=== PATIENT | male | born 1955 | race Hispanic/Latino ===

== ENCOUNTER 2017-02-10 15:31 | Inpatient (IN) | payer OTHER ==
[~2017-02-10] VITALS: Ht 167.6 cm; Wt 154.2 kg
[2017-02-10] MEDS ORDERED: NORCO 5-325 TA1 EACH PO (15:54)
[2017-02-10] MEDS ORDERED: ADULT LOW DOSE81 MG PO (15:54)
[2017-02-10] MEDS ORDERED: GLUCOSAMINE &1 EAC1 PO (15:54)
[2017-02-10] MEDS ORDERED: VITAMIN C1000 M2 PO (15:55)
[2017-02-10] MEDS ORDERED: METOPROLOL SUC100 MG PO (15:55)
[2017-02-10] MEDS ORDERED: HYZAAR 100-12.1 EACH PO (15:55)
--- NOTE | 2017-02-10 16:38 | NUR ---
PREADMIT PT CARE NOTE THIS IS A 61 YEAR OLD MALE THAT IS SCHEDULED FOR A LEFT TOTAL KNEE REPLACEMENT ON 02/23/[address] LAINA BAKER. PT LIVES WITH HIS AND SON IN A ONE STORY HOUSE WITH 2 STAIRS INTO IT. PT HAS A WALKIN SHOWER AND STATES HE IS GOING TO OBTAIN A SHOWERSEAT AND A HANDHELD SHOWERHEAD. STATES HE ALREADY HAS A FRONT WHEELED WALKER. ALSO STATES HE WILL DECIDING WHETHER HE IS GOING TO HAVE HOME HEALTH PT OR OP PT WHILE HE IS HERE AND SEES HOW HE DOES. DENIES FURTHER QUESTIONS, WILL FOLLOW PT DURING HIS STAY IN THE HOSPITAL [facility] FACILITIES OPERATIONS TECHNICIANRABBLER CASE MANAGEMENT
--- NOTE | 2017-02-23 08:46 | NUR ---
PT RESTING IN BED WATCHING TV. NO REQUESTS AT THIS TIME. FAMILY AT BEDSIDE.
--- NOTE | 2017-02-23 11:54 | NUR ---
02/23/17 1154 Miladys Gilman 1130-REPORT PER CAREER SERVICES ASSISTANT.
--- NOTE | 2017-02-23 12:41 | NUR ---
PT DROWSY, AROUSED TO VERBAL STIMULI. DENIES PAIN. GROSS MOVEMENT TO BILATERAL FEET, MOVEMENT WEAK. DULL TOUCH NOTED BY PT TO BILATERAL FEET AND TOES. PEDAL PULSES FAINT, PALPABLE, FEET COOL.
--- NOTE | 2017-02-23 12:42 | NUR ---
PT ARRIVED TO ROOM 115 AT 1227. PT SLEEPING. RESP THERAPY ASSESSING PT FOR NEED OF CPAP. FAMILY AT BEDSIDE. 2L [address] CMS INTACT. CRYOCUFF, TEDS, AND SCDs IN PLACE.
--- NOTE | 2017-02-23 13:10 | NUR ---
[facility] REC COMPLETE WITH [facility] RECORDS. PATIENT HAS BEEN PRESCRIBED IBUPROFEN, TRAMADOL, AND NAPROXEN SINCE NOVEMBER 2016. PATIENT SHOULD BE ADVISED ON WHICH PAIN MEDICATIONS SHOULD BE USED UPON DISCHARGE.
[2017-02-23] MEDS ORDERED: NAPROSYN500 MG PO (13:13)
[2017-02-23] MEDS ORDERED: ULTRAM50 MG PO (13:13)
[2017-02-23] MEDS ORDERED: IBUPROFEN600 MG PO (13:14)
--- NOTE | 2017-02-23 14:55 | NUR ---
PT REPORTED TO RN AT [facility] VS CHECK THAT HE HAD AN INCONTINENT VOID. LINENS CHANGED BY LOG ROLLING PT SIDE TO SIDE. PAIN ELEVATED IN LEFT KNEE. DILAUDID PRN GIVEN PER CURRICULUM AND ASSESSMENT COORDINATOR BREAKTHROUGH PAIN ORDERS. TOLERATING JELLO AND JUICE SO FAR. MORE JELLO PROVIDED. CRYOCUFF IN PLACE. EDUCATED PT ON WHEN TO CALL FOR PAIN MEDICINE. PT UNDERSTOOD EDUCATION. CALL LIGHT WITHIN REACH.
--- NOTE | 2017-02-23 15:20 | NUR ---
patient was taking off his pulse ox to get staff attention. patient had peed when he coughed. azael care done. clean sheet underneth and depends on. call button in reach. no other needs at this time.
--- NOTE | 2017-02-23 18:15 | NUR ---
LEFT KNEE SURGERY TODAY. CORINNE, MEPILEX, OPSITE, BENITO WRAP. CRYOCUFF, TEDS, SCDs. INCONT VOID X2. UP WITH PHYSICAL THERAPY THIS AFTERNOON. DILAUDID X2, MORPHINE X1. SALINE LOCKED. CPAP @ NOC. 2L O2 WHILE AWAKE. REGULAR DIET.
--- NOTE | 2017-02-23 20:01 | NUR ---
PT COMPLAINED OF 5/10 PAIN IN HIS KNEE, GAVE MORPHINE IV FOR PAIN. FILLED CRYOCUFF WITH ICE. PT ATE 100% OF HIS DINNER, TOOK TRAY OUT OF ROOM. GAVE FRESH ICE WATER. PT ALERT AND ORIENTED X4, PLEASENT DEMEANOR. NO DISTRESS AT THIS TIME. DRESSING IS CLEAN DRY AND INTACT, NO SHADOWING. CALL LIGHT IN REACH.
--- NOTE | 2017-02-23 20:27 | NUR ---
IN TO SEE PT, RESTING IN BED WATCHING TV. ASSESSMENT COMPLETED. PT CURRENTLY RATES PAIN A 0/10. SCD'S, CRYO, TEDS IN PLACE. PULSE OX ON PT SAT 90% ON 1L, BPAP AT BEDSIDE. CRYO CUFF FILLED WITH ICE AND FRESH ICE WATER GIVEN. CALL LIGHT WITHIN REACH.
--- NOTE | 2017-02-23 20:49 | NUR ---
pt complained of "itching around my neck and my nose." gave nubain for pruritis. pt rates pain at a 0/10 at this moment. scheduled pain medications given.
--- NOTE | 2017-02-23 21:42 | NUR ---
PT REPORTS THAT HE FEELS LIKE THE CPAP IS BLOWING TO MUCH AIR. CALLED RT TO COME LOOK AT CPAP MACHINE. RT RE-ASSURED PT THAT ALL THE SETTING ARE WHAT WAS RECOMMENDED FOR HIM. PT OKAY WITH THIS. CALL LIGHT IN REACH.
--- NOTE | 2017-02-24 01:37 | NUR ---
PT APPEARED TO BE SLEEPING WHEN ENTERING ROOM, CPAP IN PLACE. WOKE EASILY TO VOICE. PT RATES PAIN AT A 0/10 "WHEN LAYING STILL," AND A 3/10 WHEN "MOVING." GAVE SCHEDULED TORADOL AND SCHEDULED OXYCODONE FOR PAIN. ANCEF INFUSED WNL. CALL LIGHT IN REACH. CRYO CUFF REFILLED WITH ICE. NO FURTHER NEEDS.
--- NOTE | 2017-02-24 03:56 | NUR ---
IN TO CHECK ON PT PT AWAKE REQUESTING WARM BLANKETS. PT RATES PAIN A 5/10 "WHEN I MOVE MY KNEE, BUT IT SETTLES DOWN WHEN I AM STILL". DISSCUSSED PT'S PAIN GOAL OF A 1-2/10, DILAUDID 4 MG PO GIVEN FOR PAIN. WARM BLANKETS GIVEN. CRYO, SCD'S AND TEDS IN PLACE. CPAP IN PLACE. WATER, URINAL AND CALL LIGHT WITHIN REACH.
--- NOTE | 2017-02-24 05:42 | NUR ---
PT NIGHT UNEVENTFUL, RESTED WELL. PAIN WELL CONTROLED WITH SCHEDULED AND PRN MEDICATIONS. NUBANINE X1 FOR PRURITIS, COVERED WELL. DRSG CLEAN, DRY, INTACT AND NO SHADOWING PRESENT. CRYO,TEDS, SCD'S AND HEELS IN PLACE. IS AT BEDSIDE. CPAP IN PLACE OVERNIGHT. PULSE OX IN PLACE. VOIDING WELL, USES URINAL. PT ALERT, ORIENTED, COOPERATIVE AND PLEASENT.
--- NOTE | 2017-02-24 07:15 | OR ---
[facility] [address], [place] [address] Signed DATE OF PROCEDURE: 02/23/17 PREOPERATIVE DIAGNOSIS: Degenerative joint disease, left knee. POSTOPERATIVE DIAGNOSIS: Degenerative joint disease, left knee. PROCEDURE PERFORMED: Left total knee arthroplasty with computer navigation. SURGEON: Laina Cash M.D. [employer] SALES: Isa Elizabeth PA-C and HUNTER Sow. ANESTHESIA: Spinal. ESTIMATED BLOOD LOSS: Minimal. TOURNIQUET TIME: 58 minutes. IMPLANTS: Whitney size 5, 11 mm insert and a 35 mm patella. BRIEF HISTORY Que is 61-year-old gentleman with progressive worsening of osteoarthritis. He had undergone nonoperative treatment and an arthroscopy with minimal relief. Risks and benefits of operative treatment discussed with him and he elected to proceed. DESCRIPTION OF PROCEDURE Once consent was obtained, he was taken to the operating room. After adequate anesthesia, he was placed on the operating room table. All downside pressure points well padded. A left hip bump and proximal thigh tourniquet were placed. The leg was then prepped and draped in the standard sterile fashion, exsanguinated using the Esmarch bandage. Tourniquet inflated to 300 mmHg. Standard anterior-posterior curved incision was taken throug h skin and subcutaneous tissue. Median parapatellar arthrotomy was performed. The infrapatellar fat pad was excised and the insoles of a sleeve around the posterior medial corner. Anterior horns of the lateral and medial meniscus were transected as was the ACL. Knee was flexed. Navigation guide was pinned to the distal femur and the femur was registered with the computer. The distal femoral cutting guide was pinned in neutral alignment and the distal femoral cut was made. Distal femur sized to a 5. The AP cutting block was then pinned in line with epicondylar axis. Anterior, posterior, and chamfer cuts were made. The osteophytes were removed. The attention was turned to the proximal tibia and navigation guide was pinned. The tibia was registered with the computer. The cutting block was then pinned in neutral alignment. The cut was made with care taken to protect the patellar tendon and MCL. Bone was excised as well as Electronically Signed By: LAINA CASH MD 02/24/17 0715 PATIENT NAME: QUE MCCLELLAN OCA OPERATIVE REPORT DATE OF : 55 PHYSICIAN: LAINA CASH MD REPORT #: [id number] REPORT IS CONFIDENTIAL AND NOT TO BE RELEASED WITHOUT AUTHORIZATION [facility] [address], [place] [address] Signed any meniscal remnants. Posterior osteophytes were removed off the femur and tibia and posterior release was performed. Flexion-extension gaps were sized and found to be symmetric at 11 mm. The trials were positioned. He was taken through range of motion and found to be quite stable. The alignment was good. The femoral drill holes were then drille d and the patella was cut, sized, and drilled for an asymmetric 35 mm patella. The tibia was finished using the keel punched and all trials were removed. The final bone surfaces were pulse lavaged and packed with a dry Ray-Jose. The cement was mixed. When it reached proper consistency, placed all implants on all bone surfaces. Tibia was impacted into position. Again, all excess cement was removed. The polyethylene was snapped into position and the femur was impacted. Again, all excess cement was removed. The knee was extended and nicely loaded. The patella was clamped. Again, all excess cement was removed. The cement was allowed to harden for 14 minutes. The knee was then flexed and the remaining cement was removed using osteotomes. The knee was pulse lavaged throughout the procedure with a total of 3 L. Antibiotic irrigation was used. The periarticular soft tissues were injected with 100 mL ropivacaine and Toradol mixture. The arthrotomy was closed using #1 Stratafix, subcutaneous tissue with 0 Stratafix, and the skin with nai. The wound was dressed with a Mepilex Ag dressing, ABD, and Maxwell wrap. He tolerated the procedure well. All sponge, needle, and instrument counts were correct. Laina Cash MD BA/Modl /[id number] cc: Romina Oliveira NP Electronically Signed By: LAINA CASH MD 02/24/17 0715 PATIENT NAME: BRENDEN,MARTIN A OPERATIVE REPORT DATE OF : 55 PHYSICIAN: LAINA CASH MD REPORT #: [id number] REPORT IS CONFIDENTIAL AND NOT TO BE RELEASED WITHOUT AUTHORIZATION
--- NOTE | 2017-02-24 07:20 | NUR ---
REPORT RECEIVED OUTSIDE PT ROOM PATIENT IS SLEEPING FROM PRUDENCIO/JONNY LI. CPAP IN PLACE. PT SLEPT WELL THROUGHOUT NIGHT PER REPORT. USING URINAL PRN. RH IV SL. PAIN WELL CONTROLLED.
--- NOTE | 2017-02-24 07:45 | NUR ---
PATIENT UP TO CHAIR 2 PERSON ASSIST WITH WALKER. CRYO CUFF ON. PATIENT GAVE SELF BED BATH AND ORAL CARE. LINENS CHANGED. GOWN CHANGED. CALL BUTTON IN REACH.
--- NOTE | 2017-02-24 07:53 | NUR ---
QUARTER SIZE DRAINAGE ON LOWER PORTION OF DRESSING THIS MORNING. DRY BLOOD. TRANSFERRED TO CHAIR WITH 2PA AND FWW. TOLERATED MODERATELY WELL. PAIN ELEVATES WITH ACTIVITY. WILL GIVE SCHEDULED PAIN MEDS THIS MORNING AND MONITOR PAIN RELIEF.
--- NOTE | 2017-02-24 11:01 | NUR ---
PT IS LYING IN BED WATCHING TV. PT ASKED FOR MORE ICE WATER
--- NOTE | 2017-02-24 14:06 | NUR ---
PT UP WITH PHYSICAL THERAPY NOW.
--- NOTE | 2017-02-24 14:51 | NUR ---
PT IS LYING IN BED WATHCING TV. PT DID NOT NEED ANYTHING ELSE AT THE MOMENT
--- NOTE | 2017-02-24 17:25 | NUR ---
up with PT x2. tolerated moderately well. pain not well controlled with regimen-- oxycodone increased to 10mg q4h scheduled. slight shadowing on mepilex and bottom of dressing. may go home tomorrow per PT. urinal.
--- NOTE | 2017-02-24 18:01 | NUR ---
PT IS SITTING UP IN BED ON PHONE. PT DID NOT NEED ANYTHING AT THE MOMENT
--- NOTE | 2017-02-24 19:42 | NUR ---
pt laying in bed, watching tv. friendly and pleasent demeanor. pt rates pain at 8/10, gave prn dilaudid. iv would no longer flush, dc'd iv wnl, tip intact. pt has no further needs. call light in reach. cryo cuff full of ice. fresh ice water given.
--- NOTE | 2017-02-24 20:00 | NUR ---
IN TO SEE PT, PT AWAKE WATCHING TV. PT RATES HIS PAIN AN 8/10, FACIAL GRIMACE WITH MOVEMENT OF KNEE. PRN DILAUDID GIVEN. CRYO, SCD, TEDS AND BENITO INTACT. NOTED A QUARTER SIZE AREA OF DRAINAGE NOTED ON THE TOP LAYER OF BENITO WRAP AND 2 SMALL AREAS OF SHADOWING ON THE LAYERS BELOW. ASSESSMENT DONE, MEDICATION GIVEN. PT RESTING WATCHING TV, CALL LIGHT WITHIN REACH.
--- NOTE | 2017-02-24 21:58 | NUR ---
ATTEMPTED TO GIVE IV MEDICATION, PT STATES IV SITE CHOWDHURY AND IS PAIN WHEN MEDICATION IS GIVEN. IV DC'D FOR DISCOMFORT. DR. URIOSTEGUI NOTIFIED, OKHELIO TO LEAVE IV OUT. PO TORADOL ORDERED AND GIVEN. DISCUSSED PT CURRENT PAIN RATING OF 8/10. PER DR. SAMUEL DEVRIES TO GIVE DILAUDID 4-12 MG, Q4 PRN. ORDERS UPDATED.
--- NOTE | 2017-02-24 22:00 | NUR ---
pt complained of 6/10 pain, states "its a little bit better now, that last pain medicine took the edge off." gave scheduled oxycodone. will continue to monitor closely.
--- NOTE | 2017-02-24 22:38 | NUR ---
FILLED THE CRYO.
--- NOTE | 2017-02-24 23:17 | NUR ---
IN TO CHECK ON PT, PT APPEARS TO BE SLEEPING, NO APPARENT DISTRESS. CPAP IN PLACE. CRYO, SCD'S, TEDS AND HEEL PROTECTORS IN PLACE.
--- NOTE | 2017-02-25 00:18 | NUR ---
IN ROOM, PT REQUEST MEDICATION FOR PAIN MEDICATION. PT EXHIBIT FACIAL GRIMACE AND LABORED BREATHING WITH PAIN. PT RATES PAIN A 9/10. DILAUDID 12 MG GIVEN. PT MOVED UP IN BED AND REPOSITIONED FOR COMFORT. DRESSING ASSESSED. CRYO, SCD'D, TEDS AND HEEL PROTECTORS IN PLACE. CPAP PLACED AND ADJUSTED FOR COMFORT. CALL LIGHT WITH REACH.
--- NOTE | 2017-02-25 02:35 | NUR ---
pt appeared to be sleeping when entering room, woke easily to rn voice. pt rates pain at 3/10 at this time. gave scheduled oxycodone for pain.
--- NOTE | 2017-02-25 04:30 | NUR ---
pt appeared to be sleeping, cpap in place, woke to rn voice. rates pain at 5/10 at this moment, gave dilaudid prn for pain. will continue to monitor pain closely.
--- NOTE | 2017-02-25 05:58 | NUR ---
pt complaining of 9/10 pain, grimmacing facial expressions, growning. pt sat at bedside to void in urinal. brought pt a bigger chair and got pt up in chair, pt able to stand with one 2 person assist and fww, painful but steady. scheduled oxycodone given. refilled ice in cryo cuff. after sitting up in chair for a few minutes, pt reported pain was "settling down." call light in reach. fresh ice water at bedside.
--- NOTE | 2017-02-25 06:29 | NUR ---
PT PAINFUL IN BEGINNING OF SHIFT, REPORTED PAIN AT 8/10. SCHEDULED AND PRN PAIN MEDICATIONS GIVEN APPROXIMATLEY EVERY 2 HOURS OVERNIGHT, PAIN LEVEL DOWN TO 3/10 LATE IN SHIFT AND THEN BACK UP TO 9/10 THIS MORNING. GOT PT A BIGGER CHAIR IN ROOM AND ASSISTED PT UP IN CHAIR, PT REPORTED PAIN STARTED TO DECREASE. CRYO CUFF FILLED WITH ICE, TEDS, SCD'S, AND HEEL PROTECTORS ON ALL NIGHT. DRESSING INTACT WITH SMALL SPOT OF SHADOWING, WHICH HAS BEEN UNCHANGED SINCE BEGINNING OF SHIFT. PT USED INCENTIVE SPIROMETER IN FRONT OF RN A FEW TIMES OVERNIGHT. PT ALERT AND ORIENTED, COOPERATIVE, AND PLEASENT. ABLE TO USE URINAL SITTING AT BEDSIDE. USES CALL LIGHT APPROPRATLY.
--- NOTE | 2017-02-25 06:35 | NUR ---
IN TO CHECK ON PT, PT UP IN CHAIR TALKING ON THE PHONE. NO APPARENT DISTRESS NOTED.
--- NOTE | 2017-02-25 06:45 | NUR ---
PT APPEARS TO BE SLEEPING, RECLINED IN CHAIR. EYES CLOSED, RR WNL AND UNLABORED. NO DISTRESS AT THIS TIME. CALL LIGHT IN REACH.
--- NOTE | 2017-02-25 07:56 | NUR ---
PATIENT REMAINS UP IN THE CHAIR, PAIN INTOLERABLE AT THIS TIME AT A 9, PATIENT GIVEN HIS SCHEDULED TORADOL PO AND 12MG PO DILAUDID. CRYO CUFF ON HIS LEFT LEG FULL OF ICE AND CMS INTACT TO THE LEFT LEG. DRESSING CDI. PATIENT C/O LEFT LEG BEING NUMB AT THIS TIME. THIS RN ASSISTED THE PATIENT WITH MOVING THE LEG. BREAKFAST SET UP FOR THE PATIENT AND ICE WATER FILLED FOR HIM. WARM BLANKET PROVIDED FOR HIM AT THIS TIME.
--- NOTE | 2017-02-25 08:35 | NUR ---
PATIENT AWAKE IN CHAIR EATING BREAKFAST. PATIENT STATED HE DID NOT NEED ANYTHING AT THIS TIME.
--- NOTE | 2017-02-25 09:46 | NUR ---
patient's pain is still at a 9/10, patient given scheduled oxycodone at this time and Doctor Shaliesh notified that patients pain remains intolerable and patient c/o a numb left leg.
--- NOTE | 2017-02-25 10:34 | NUR ---
PATIENT UP IN CHAIR SLEEPING. I TOOK VITALS. I OFFERED PATIENT A BED BATH OR SHOWER, HE REFUSED IT HURTS TO BAD TO GET UP. HE AGREED TO THE NEXT TIME HIM GETTING UP WE CAN CLEAN HIM UP. REFILLED CRYOCUFF AND GOT PATIENT ICE WATER.
--- NOTE | 2017-02-25 11:12 | NUR ---
doctor Shailesh in the room to see the patient and dressing removed from the left knee. Enriqueta in from physical therapy to help the patient stand. New medication ordered at this time and given for pain control. Ms Contin 15 mg po given now. pain now 04/12.
--- NOTE | 2017-02-25 11:56 | NUR ---
PATIENT RESTING IN BED AFTER AMBULATING WITH PHYSICAL THERAPY. PATIENT'S PAIN A LITTLE IMPROVED AFTER TAKING THE MSCONTIN. PAIN NOW DOWN TO A 6/10.
--- NOTE | 2017-02-25 12:28 | NUR ---
PAIN LEVEL DOWN TO A 6/10 AT THIS TIME, PATIENT REMAINS RESTING IN BED, SCHEDULED TORADOL GIVEN AT THIS TIME.
--- NOTE | 2017-02-25 14:10 | NUR ---
PATIENT GIVEN PAIN MEDICATION AT THIS TIME PER REQUEST FOR WORKING WITH PHYSICAL THERAPY AT 1500. PATIENT'S CURRENT PAIN RAITING IS AT A 11/10.
--- NOTE | 2017-02-25 15:00 | NUR ---
PATIENT UP TO THE PHYSICAL THERAPY ROOM WITH JORDON TO THE EXERCISE BIKE. PAIN WELL CONTROLLED AFTER TAKING DILAUDID. TOLERATING PHYSICAL THERAPY WELL THIS AFTERNOON.
--- NOTE | 2017-02-25 17:39 | NUR ---
PATIENT SITTING UP IN BED EATING DINNER, REGULAR SCHEDULED TORADOL GIVEN PO AT THIS TIME. PATIENTS PAIN CURRENTLY AT A 4/10. PATIENT DENIES ANY NEEDS AT THIS TIME.
--- NOTE | 2017-02-25 17:56 | NUR ---
PATIENTS VITALS AND I AND O COMPLETE AT THIS TIME
--- NOTE | 2017-02-25 20:04 | NUR ---
IN TO CHECK ON PT, PT ALERT WATCHING TV. PT IIS PLEASENT. CURRENTLY RATES PAIN A 2-3. PT STATES "I AM OF THE PAIN COMING BACK. IT IS STARTING TO COME BACK". ADVISED PT THAT PRN PAIN MEDICATION AVAILABLE AND SCHEDULED PAIN MEDICATION GIVEN AT 2100. DRSG CLEAN DRY AND INTACT. CRYO,SCD'S,EILEEN'S AND HEEL PROTECTORS IN PLACE. FRESH WATER GIVEN, CALL LIGHT WITHIN REACH.
--- NOTE | 2017-02-25 21:05 | NUR ---
PT SLEEPING WHEN ENTERING ROOM, WOKE EASILY TO VOICE. ASSISTED PT TO SIT AT BEDSIDE SO THAT HE COULD VOID IN URINAL. PT BACK IN BED NOW. RATES PAIN AT 5/10 AT THE MOMENT, GAVE SCHEDULED MS CONTIN AND TORADOL FOR PAIN. DRESSING IS CLEAN DRY AND INTACT, NO SHADOWING. TEDS, SCD'S, HEEL PROTECTORS IN PLACE. CRYO CUFF REFILLED WITH ICE AND PLACED ON KNEE. PT DENIES FURTHER NEEDS. CALL LIGHT IN REACH.
--- NOTE | 2017-02-25 22:57 | NUR ---
IN TO CHECK ON PT, PT SLEEPING CPAP IN PLACE. NO APPARENT DISTRESS NOTED. CRYO CUFF, EILEEN'S, SCD'S AND HEEL PROTECTORS IN PLACE. IS AT BEDSIDE. CALL LIGHT WITHIN REACH.
--- NOTE | 2017-02-26 00:02 | NUR ---
IN TO CHECK ON PT, PT SLEEPING. EASILY AROUSED BY VOICE. PT RATES PAIN 1/10. DILAUDID GIVEN FOR PAIN. CRYO CUFF, TEDS, SCDS AND HELL PROTECTORS IN PLACE. IS AT BEDSIDE. WATER AND CALL LIGHT WITHIN REACH.
--- NOTE | 2017-02-26 00:06 | NUR ---
PT ASLEEP WHEN ENTERING ROOM, PT WOKE EASILY BY VOICE. PT RATES PAIN AT 1/10 AT THE MOMENT. GAVE PT DILAUDID 4MG TO KEEP PAIN UNDER CONTROL. WILL CONTINUE TO MONITOR PT FOR PAIN. CALL LIGHT IN REACH.
--- NOTE | 2017-02-26 02:54 | NUR ---
IN TO CHECK ON PT, PT SLEEPING, CPAP IN PLACE. CRYO CUFF, SCDS, TEDS AND HEEL PROTECTORS IN PLACE. NO APPARENT DISTRESS NOTED. CALL LIGHT WITHIN REACH.
--- NOTE | 2017-02-26 04:50 | NUR ---
pt woke to voice when entering room. assisted to stand at bedside, pt tolerated getting up and standing at bedside very well, voided in urinal. pt rates pain at "2-3/10," "im kind of starting to feel it again." gave dilaudid 8mg for pain. pt has no other complaints at this time. back in bed. cryo cuff refilled with ice. ice water given. call light in reach. pt placed cpap back and and stated "maybe i can get a little more sleep in tonight."
--- NOTE | 2017-02-26 05:42 | NUR ---
PT HAS HAD UNEVENTFUL SHIFT. REPORTED PAIN UP TO A 5/10. MS CONTIN AND DILAUDID GIVEN. DRSG CLEAN, DRY AND INTACT. NO SHADOWING NOTED. CRYO CUFF, TEDS,SCDS AND HEEL PROTECTORS IN PLACE. IS AT BEDSIDE. PT ALERT, ORIENTED AND COOPERATIVE. PT PLEASENT. USES CALL LIGHT APPROPRIATLY.
--- NOTE | 2017-02-26 07:20 | NUR ---
REPORT RECEIVED FROM BOOK BINDER RN USING 5 P'S. PT AWAKE AND ALERT IN BED. REQUESTS PAIN MED PRIOR TO PHYSICAL THERAPY. DENIES NEEDS AT THIS TIME. CRYOCUFF, TEDS, SCD'S IN PLACE. CALL LIGHT IN REACH. NO IV ACCESS.
--- NOTE | 2017-02-26 10:06 | NUR ---
PT UP TO BR FOR VOID AND BM THEN TO SHOWER. GIVEN DILAUDID AND MS CONTIN FOR PAIN. PHYSICAL THERAPY IN TO WORK WITH PT.
--- NOTE | 2017-02-26 12:00 | NUR ---
PT TO FLOOR VIA GURNEY. NAUSEOUS WITH MOVEMENT. LARGE EMESIS ON ARRIVAL TO ROOM. GIVEN 4 MG ZOFRAN. VAG PACKING IN PLACE. CONT PULSE OX PLACED. 2 L O2 NC IN PLACE. SATS 98%. PT SETTLED IN BED. SCOPE SITES TO ABD INTACT PT COMPLAINS OF PAIN. UNABLE TO RATE. FALLS ASLEEP IMMEDIATELY. SATS DECREASE TO 84% O2 INCREASED TO 3, 4, THEN 5 L. SATS INCREASE TO 88%. OXYMASK APPLIED. SATS INCREASE TO 94%. RT CALLED TO EVALUATE FOR CPAP. RT RECOMMENDS CPAP. MD ABARCAS. FAMILY AT BEDSIDE. CALL LIGHT IN REACH. IV FLUIDS INFUSING WITHOUT DIFFICULTY.
--- NOTE | 2017-02-26 13:00 | NUR ---
PT UP TO BR. ASSISTED BACK TO SIT ON EDGE OF BED. PHONE AND CALL LIGHT IN REACH. PT DENIES NEEDS. PT MEDICATED WITH DILAUDID TO KEEP PAIN UNDER CONTROL FOR PHYSICAL THERAPY.
--- NOTE | 2017-02-26 15:09 | NUR ---
PT UP ON EXERCISE BIKE FOR PHYSICAL THERAPY.
--- NOTE | 2017-02-26 15:29 | NUR ---
noah mcclelland placed on the patient at this time.
--- NOTE | 2017-02-26 17:56 | NUR ---
PT HAS HAD UNEVENTFUL SHIFT. TAKING PO WELL. VOIDING WELL. SBA W/ FWW TO BR AND TO WALK IN [place]. RECEIVING 8 MG DILAUDID PO Q 4 HRS, WHICH IS MANAGING PAIN WELL WITH SCHEDULED MS CONTIN AND TORADOL. ENCOURAGED PT TO BE INDEPENDANT WITH MOVEMENT MUCH POSSIBLE SO PT IS ABLE TO GO HOME TOMORROW PLANNED. NO IV ACCESS. CALLS APPROPRIATELY. CHRISTEL MACK, SCD'S.
--- NOTE | 2017-02-26 19:29 | NUR ---
PT ASSESSMENT COMPLETE. PT DENIES ANY PAIN, N/V, SOB AT THIS TIME. DRESSING TO LEFT KNEE IS C/D/I, CRYO CUFF IN PLACE. PT ON ROOM AIR. PT HAS NO IV ACCESS. CALL LIGHT WITHIN REACH. PT DENIES ANY FURTHER NEEDS AT THIS TIME.
--- NOTE | 2017-02-26 21:14 | NUR ---
PT C/O "RED SPOTS" ON LEFT KNEE, RESOLVED BUT SLIGHTLY PINK AREA POSSIBLY D/T CRYO CUFF DIRECTLY ON SKIN. PLACED SHEET OVER KNEE WITH CRYO CUFF OVER FOR COMFORT. WILL CONTINUE TO MONITOR. PINK AREA NEXT TO DRESSING IS NOT HOT OR SWOLLEN. PT DENIES ANY DISCOMFORT WITH PINK AREA, PT STATES "I JUST NOTICED IT AND WANTED TO MAKE SURE IT WAS NORMAL" PT RATES PAIN 2/10, SCHEDULED TORADOL AND MS CONTIN GIVEN. PT VOIDING WELL IN URINAL. UP WITH SBA USING FWW, TOLERATES AMBULATION FAIRLY WELL. CALL LIGHT WITHIN REACH. PT DENIES ANY FURTHER NEEDS AT THIS TIME.
--- NOTE | 2017-02-27 00:10 | NUR ---
PT SLEEPING, WEARING BIPAP, RR EVEN AND UNLABORED. PT APPEARS COMFORTABLE AT THIS TIME. CALL LIGHT WITHIN REACH.
--- NOTE | 2017-02-27 02:07 | NUR ---
WOKE PT UP FOR PAIN MEDICATION. PT WOKE EASILY TO VERBAL STIMULATION. PT RATES PAIN IN LEFT KNEE 08/12, 8 MG PO DILAUDID GIVEN. DRESSING TO KNEE IS C/D/I. PT VOIDING IN URINAL AT EDGE OF BED WITHOUT DIFFICULTY. CRYO CUFF REFILLED AND IN PLACE. PT WEARING BIPAP AT SLEEP. CALL LIGHT WITHIN REACH. PT DENIES ANY FURTHER NEEDS AT THIS TIME.
--- NOTE | 2017-02-27 04:20 | NUR ---
PT SLEEPING, WEARING BIPAP, RR EVEN AND UNLABORED. PT APPEARS COMFORTABLE AT THIS TIME. CALL LIGHT WITHIN REACH.
--- NOTE | 2017-02-27 06:34 | NUR ---
PT HAD AN UNEVENTFUL NIGHT, SLEPT MOST OF THE NIGHT, WEARS BIPAP DURING SLEEP. PT AMBULATES WITH x1 ASSIST USING FWW. PT PAIN CONTROLLED WITH NEW MEDICATION REGIME OF MS CONTIN, TORADOL AND PO DILAUDID. DRESSING C/D/I. PT VOIDING WELL. CRYO CUFF/TEDS/SCD IN PLACE. PT PLAN IS TO D/C HOME TODAY.
--- NOTE | 2017-02-27 06:58 | NUR ---
PT RATES PAIN 1/10, PO DILAUDID GIVEN. DRESSING C/D/I, CRYO CUFF IN PLACE. CALL LIGHT WITHIN REACH. PT DENIES ANY FURTHER NEEDS AT THIS TIME.
[2017-02-27] MEDS ORDERED: MIRALAX17 GM PO (07:22)
[2017-02-27] MEDS ORDERED: XARELTO10 MG PO (07:22)
[2017-02-27] MEDS ORDERED: HYDROMORPHONE HC4 MG PO (07:22)
[2017-02-27] MEDS ORDERED: MORPHINE SULFAT15 MG PO (07:22)
--- NOTE | 2017-02-27 07:25 | NUR ---
REPORT RECEIVED FROM INSULATION BOARD COATER OPERATOR RN USING 5 P'S. PT AWAKE AND ALERT. RECENTLY RECEIVED PAIN MED FROM INSULATION BOARD COATER OPERATOR. DENIES NEEDS AT THIS TIME. CALL LIGHT IN REACH. TEDS, SCD'S, CRYOCUFF IN PLACE.
[2017-02-27] MEDS ORDERED: MS CONTIN15 MG PO (09:17)
--- NOTE | 2017-02-27 10:00 | NUR ---
PT UP TO BR. VISITORS IN TO SEE PT. PT GIVEN SCHEDULED MS CONTIN AND TORADOL. DENIES NEEDS AT THIS TIME. CALL LIGHT IN REACH. PREPARING FOR DC.
--- NOTE | 2017-02-27 10:44 | NUR ---
PT IS SITTING UP ON SIDE OF BED WAITING TO BE DISCHARGED PT WANTED TO KNOW IF HIS PERSCRIPTION COULD BE CHANGED TO [facility] [place], WILL CHECK WITH PHARMACY
--- NOTE | 2017-02-27 12:02 | NUR ---
PRIOR TO FAXING ORDERS I TALKED WITH THE PT AND MADE SURE PT WAS THROUGH [facility] FAXED CHART NOTES INCLUDING FACESHEET, ORDER, H AND P, OP NOTES, PROG NOTE, MEDS, LABS AND PT AND OT EVAL AND NOTES TO [facility] IN [place]. ALSO CALLED [facility] AND TALKED WITH BIANCA THERE.
--- NOTE | 2017-03-02 10:10 | DS ---
[facility] [address] [place], [place] [address] Signed ADMIT DATE: 02/23/2017 DISCHARGE DATE: 02/27/2017 ADMISSION DIAGNOSIS Degenerative joint disease, left knee. DISCHARGE DIAGNOSIS: Degenerative joint disease, left knee. PROCEDURE PERFORMED: Left total knee arthroplasty. BRIEF HISTORY: Que is a 61-year-old gentleman with pain in his knee, not responsive to nonoperative treatment. He had undergone extensive treatment. Risks, benefits, alternatives were discussed. He elected to proceed. Once consent was obtained, he was taken the operating room, underwent the above-named procedure. He tolerated t his well. He was taken to recovery room and subsequently to the orthopedic floor. He was seen by Physical Therapy, initially had extensive pain that ultimately was managed using MS Contin and Dilaudid. Once we get his pain under control, he was able to am b ulate get himself in and out of bed. Coping down the stairs with minimal difficulty. DVT prophylaxis was provided using SCDs, TEDs, and Xarelto 10 mg p.o. daily. He will be continued on his home medications of MS Contin and Dilaudid as well as well Xarelt o. He will be seen by outpatient physical therapy and follow up with me in 7-10 days. Should he have any problems he will contact me immediately. Laina Cash MD BA/Christopher /[id number] Electronically Signed By: LAINA CASH MD 03/02/17 1010 PATIENT NAME: BRENDENQUE Evelina DISCHARGE SUMMARY DATE OF : 55 PHYSICIAN: LAINA CASH MD REPORT #: [id number] REPORT IS CONFIDENTIAL AND NOT TO BE RELEASED WITHOUT AUTHORIZATION
== END 2017-02-27 11:10 | disposition home or self-care (01) | DRG 470 ==
LOC: DSVR 02-23 06:05 → MS 02-23 09:45
PROVIDERS: ADMIT Specialist
PROC: 8E0YXBZ Computer Assisted Procedure of Lower Extremity (ICD-10-PCS; 2017-02-23)
PROC: 3E0T3CZ (ICD-10-PCS; 2017-02-23)
PROC: 5A09357 Assistance with Respiratory Ventilation, Less than 24 Consecutive Hours, Continuous Positive Airway Pressure (ICD-10-PCS; 2017-02-23)
PROC: 0SRD0J9 Replacement of Left Knee Joint with Synthetic Substitute, Cemented, Open Approach (ICD-10-PCS; principal; 2017-02-23 09:45)
DX: M17.12 Unilateral primary osteoarthritis, left knee (principal); Z68.43 Body mass index [BMI] 50.0-59.9, adult; I10 Essential (primary) hypertension; E66.01 Morbid (severe) obesity due to excess calories; G47.33 Obstructive sleep apnea (adult) (pediatric); R35.1 Nocturia; R39.15 Urgency of urination; G89.18 Other acute postprocedural pain; Z79.82 Long term (current) use of aspirin; Z79.1 Long term (current) use of non-steroidal anti-inflammatories (NSAID); Z88.5 Allergy status to narcotic agent; Z79.891 Long term (current) use of opiate analgesic; Z79.899 Other long term (current) drug therapy
CPT/HCPCS: 01402; 36415; 64447; 64450; 76942; 80048; 85025; 94660; 94760; 94762; 97110; 97116; 97161; 97530; C1713; C1776; J0690; J1100; J1170; J1885; J2250; J2270; J2274; J2300; J2704; J2795; J3010; J7120